=== PATIENT | male | born 1960 | race African-American/Black ===

== ENCOUNTER 2019-09-18 14:32 | Outpatient (CLI) | payer MEDICAID ==
[~2019-09-18] VITALS: Ht 182.9 cm; Wt 112.9 kg
[2019-09-18 14:55] VITALS: BP 150/98
--- NOTE | 2019-09-18 21:01 | Consultation ---
DATE OF CONSULTATION: 09/18/2019 CHIEF COMPLAINT: Referral for screening colonoscopy. Also, the patient has chronic GERD. PAST MEDICAL HISTORY: 1. Hypertension. 2. History of peptic ulcer disease. 3. History of lung mass status post right lung resection, actually it was not a cancer, it was just a benign mass. The patient is currently on CPAP at night. PAST SURGICAL HISTORY: As above. MEDICATIONS: Please see medication reconciliation list. FAMILY HISTORY: Noncontributory. SOCIAL HISTORY: The patient still smokes cigarettes. Denies any alcohol or IV drug abuse. ALLERGIES: No known drug allergies. REVIEW OF SYSTEMS: Positive for chronic GERD, abdominal pain. PHYSICAL EXAMINATION: VITAL SIGNS: Temperature 98.2, blood pressure 152/58, pulse is 87, respirations 20. HEENT: Normocephalic and atraumatic. Sclerae are anicteric. NECK: Supple. No evidence of obvious lymphadenopathy. CARDIOVASCULAR: Regular rate and rhythm. Plus S1 and S2. LUNGS: The patient had no breath sounds on the right side, breath sounds on the left side. ABDOMEN: Soft and nontender. No rebound. No guarding. No peritoneal sign. EXTREMITIES: No cyanosis, no clubbing, no edema. ASSESSMENT AND PLAN: This is a 59-year-old male with right lung removal, still smoking, needs screening colonoscopy given his age of 59. Also he has complaint of chronic GERD and has history of peptic ulcer disease before, so he also needs an endoscopy. Plan to schedule for EGD and colonoscopy when authorization is obtained. The patient was given instruction for colonoscopy and endoscopy. The risks and benefits of the procedure were explained to him and he agreed. Bubba Al M.D. DR: Merlyn JOB#: [id number] CC:
== END 2019-09-18 17:08 | disposition home or self-care (01) ==
LOC: PAN 14:32
DX: K21.9 Gastro-esophageal reflux disease without esophagitis (principal); I10 Essential (primary) hypertension; Z87.11 Personal history of peptic ulcer disease; F17.210 Nicotine dependence, cigarettes, uncomplicated; R10.9 Unspecified abdominal pain
CPT/HCPCS: G0463

== ENCOUNTER 2020-05-14 14:03 | Outpatient (CLI) | payer MEDICAID ==
[2020-05-14] MEDS ORDERED: LOSARTAN POTASS50 MG ORAL (14:18)
[2020-05-14] MEDS ORDERED: PANTOPRAZOLE SO40 MG ORAL (14:18)
[2020-05-14] MEDS ORDERED: PRAVASTATIN SOD20 M1 ORAL (14:18)
[2020-05-14] MEDS ORDERED: ALBUTEROL SULF8.5 G1 INH (14:18)
[2020-05-14 14:20] VITALS: BP 149/93
--- NOTE | 2020-05-14 14:28 | General Progress Note ---
Subjective ROS Limited/Unobtainable: Yes Allergies: Coded Allergies: No Known Allergies (Unverified , 09/18/19) Objective Last 24 Hour Vital Signs Date Time Temp Pulse Resp B/P (MAP) Pulse Ox O2 Delivery O2 Flow Rate FiO2 05/14/20 14:20 97.2 89 18 149/93 97 General Appearance: alert EENT: normal ENT inspection Neck: supple Cardiovascular: normal rate Respiratory/Chest: lungs clear Abdomen: normal bowel sounds, non tender, soft Extremities: non-tender Assessment/Plan Assessment/Plan: one colon polyp>>> repeat colon in 5 years chronic gastritis chronic ppi use esoph sub mucosal lesion check B12 and Mag EUS Bubba Al MD May 14, 2020 14:28
== END 2020-05-14 16:03 | disposition home or self-care (01) ==
LOC: PAN 14:03
DX: K29.50 Unspecified chronic gastritis without bleeding (principal); Z86.010 Personal history of colon polyps; K22.9 Disease of esophagus, unspecified
CPT/HCPCS: 99212